=== PATIENT | male | born 1990 | race Caucasian/White ===

== ENCOUNTER 2017-10-11 08:32 | Emergency (ER) | payer SELFPAY ==
[2017-10-11 08:43] VITALS: BP 134/83
[2017-10-11] MEDS ORDERED: IBUPROFEN 800 MG TABLET PO ONE (08:48)
--- NOTE | 2017-10-11 08:53 | ER Document Report ---
ED General - General Chief Complaint: Back Pain Stated Complaint: BACK PAIN Time Seen by Provider: 10/11/17 08:43 TRAVEL OUTSIDE OF THE [place] IN LAST 30 DAYS: No - HPI Notes: 27-year-old male with a history of intermittent chronic back pain presents with back pain. Describes severe throbbing burning aching pain in his left lower lumbar region that radiates down his back leg. Does not cross his knee. Has not had an MRI in the past. Does intermittently see a chiropractor. Gradual onset. Increased recouped activity but no recent trauma. There is no history of malignancy, no history of bowel or bladder dysfunction. No fever or constitutional symptoms. No history of IV drug abuse. - Related Data Allergies/Adverse Reactions: Penicillins Allergy (Verified 10/11/17 08:33) Past Medical History - Social History Smoking Status: Smoker,Current Status Unk Drug Abuse: None Family History: Reviewed & Not Pertinent - Medical History Notes: Chronic back pain Past Surgical History: Reports: Hx Orthopedic Surgery - l femur - Immunizations Hx Diphtheria, Pertussis, Tetanus Vaccination: - unknown Review of Systems - Review of Systems Notes: Review of systems as in history of present illness, otherwise no significant headache, chest pain, abdominal pain. Physical Exam - Vital signs Vitals: Temp Pulse Resp BP Pulse Ox 98.6 F 82 20 134/83 H 99 10/11/17 08:36 10/11/17 08:36 10/11/17 08:36 10/11/17 08:36 10/11/17 08:36 - Notes Notes: General: Well devloped, no acute distress. HEENT: Normocephalic, atraumatic. Pupils equal round reactive to light. Mucosa moist. No JVD. Chest: No trauma, normal excursion. Respiratory: Good air exchange, normal excursion. Cardiac: Regular rhythm Abdomen: Soft, benign. Nondistended. Back: No asymmetry, left paralumbar spasm, no point vertebral tenderness. Motor: Grossly normal power and tone. Neurologic: Alert, nonfocal. Vascular: Well perfused Skin: No petechiae or purpura Course - Re-evaluation Re-evalutation: 10/11/17 08:51 Well-appearing male with lumbar strain versus disc disease. No high-risk features. No true weakness, strength somewhat limited by pain. Plan to proceed with ED treatment with ibuprofen. Will give a prescription for Voltaren, Flexeril, Medrol Dosepak, outpatient follow-up. May benefit from MR imaging with a primary care doctor - Vital Signs Vital signs: Temp Pulse Resp BP Pulse Ox 98.6 F 82 20 134/83 H 99 10/11/17 08:36 10/11/17 08:36 10/11/17 08:36 10/11/17 08:36 10/11/17 08:36 Discharge - Discharge Clinical Impression: Back pain Qualifiers: Back pain location: low back pain Chronicity: acute Back pain laterality: left Sciatica presence: without sciatica Qualified Code(s): M54.5 - Low back pain Condition: Good Disposition: HOME, SELF-CARE Instructions: Low Back Pain ([facility]) Prescriptions: Cyclobenzaprine HCl [Flexeril 10 mg Tablet] 10 mg PO TIDP PRN #15 tab PRN Reason: Diclofenac Sodium [Voltaren 50 Mg Tablet.] 50 mg PO Q12 PRN #14 tablet. PRN Reason:
== END 2017-10-11 09:06 | disposition home or self-care (01) ==
LOC: ER 08:32
DX: M54.5 Low back pain (principal); G89.29 Other chronic pain; M79.605 Pain in left leg; F17.200 Nicotine dependence, unspecified, uncomplicated
CPT/HCPCS: 99283